=== PATIENT | female | born 1960 | race Caucasian/White ===

== ENCOUNTER 2024-05-11 10:15 | Outpatient (REF) | payer OTHER, SELFPAY ==
--- NOTE | ~2024-05-11 | XR_ITS ---
EXAMINATION: XR ANKLE, LEFT CLINICAL INFORMATION: Pain in the left ankle: COMPARISON: None available. TECHNIQUE: AP, lateral, and mortise views of the left ankle. FINDINGS: Nondisplaced/minimally displaced fracture distal fibula versus ossicle. Probable surrounding soft tissue swelling. The bones joints and soft tissues are otherwise unremarkable other than the moderate-sized plantar calcaneal spur. XR/XR ankle LT min 3V IMPRESSION: Nondisplaced/minimally displaced fracture of the distal fibula versus ossicle. Favor fracture. Correlate clinically
== END 2024-05-11 10:16 | disposition home or self-care (01) ==
LOC: HO.HOSX 10:15
PROVIDERS: Visit Provider Physician Assistant
DX: S82.892A Other fracture of left lower leg, initial encounter for closed fracture (principal)
CPT/HCPCS: 73610; 99202

== ENCOUNTER 2024-05-11 10:28 | Outpatient (AMB) | payer OTHER, SELFPAY ==
--- NOTE | 2024-05-11 10:35 | MHC.OFFVIS ---
Vital Signs 05/11/24 10:42 Height 5 ft 2.5 in Weight 205 lb BMI 36.9 Intake Visit Reasons: FC-Left ankle Fracture-twisted ankle 04/28/24 Intake Note: Sybil a 63 year old female who presents today for an evaluation of left ankle. 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 She presented to [facility] ER where xrays were taken, placed in a walking boot, crutches were given and referred to orthopedics. Currently she has a stinging sensation at the lateral aspect of ankle. States having improvement in swelling and pain since her injury. Allergies morphine Allergy (Unknown, Verified 05/11/24 10:43) hives, vomitting Medication List - Last Reconciled 05/11/24 by Leigh Ann Gallardo PA-C No Known Home Meds HPI HPI FC-Left ankle Fracture-twisted ankle 04/28/24: Details: Sybil is a 63-year-old female who presents today for an evaluation of left ankle fracture, twisted ankle on 04/28/24. 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 She was presented at [facility] ER, x-rays were taken, she was put in a walking boot, given crutches, and a referral was placed to see an orthopedic surgeon. She was grabbed by one of her colleague who helped her to get up. Currently, she has been experiencing a stinging sensation at the lateral aspect of her ankle. She reports significant improvement in her swelling and pain since her injury. She was worried about her walking boot because she finds it uncomfortable to wear. She claims that she had previously been injured. She was advised to become non-weightbearing after being placed in a cast. She has a history of breast cancer. She was diagnosed with osteopenia. [facility]LY [facility] Surgical History (Updated 05/11/24 @ 10:47 by RODOLFO Borrego) History of lithotripsy Hx of cholecystectomy Hx of lumpectomy Social History (Updated 05/11/24 @ 10:48 by RODOLFO Borrego) Patient Tobacco Use Status: Never used Tobacco Current occupational status: employed and retired Current occupation: [employer] Review of Systems Const All systems reviewed & are unremarkable except as noted in HPI and below Physical Exam Vital Signs: BMI result Body Mass Index 36.9 Const General: cooperative, healthy appearing, comfortable and no acute distress Orientation/consciousness: patient oriented x3 Neck Neck: Yes normal visual inspection and Yes no JVD Chest Chest palpation & inspection: normal inspection of the chest Resp Effort & Inspection: normal respiratory effort Auscultation: clear to auscultation bilaterally, crackles (no), rales (no), rhonchi (no) and wheezes (no) Cardio Jugular venous distension: no JVD Rate: regular rate Rhythm: regular rhythm Heart sounds: S1 normal heart sound present, S2 normal heart sound present, Murmur heart sound present (no) and Rub heart sound present (no) Neuro General: patient oriented x3 Extrem Other: Left ankle is normal to inspection. She has mild tenderness over the syndesmosis and medial malleolous. She has no tenderness over the base of the fifth metatarsal. NVI throughout. General: Yes normal to inspection, Yes no pedal edema and Yes no calf tenderness Psych Appearance: grossly normal Mental Status: mental status grossly normal Speech and movement: Normal speech and movement present Assessment & Plan Assessment & Plan (1) Closed left ankle fracture: Code(s): S82.892A - Other fracture of left lower leg, initial encounter for closed fracture Category: Medical Plan She will continue with the weightbearing as tolerated. She can come out of the boot for resting, icing, and hygiene. She can discontinue the use of the crutches and she will continue working from home without restrictions. I will see her back in 4 weeks with x-rays or sooner if needed. Orders: Orders XR ankle LT min 3V Today M25.572 - Pain in left ankle and joints of left foot Patient Instructions: Scribed for Leigh Ann Gallardo PA-C, by Giovani Falcon medical staffing coordinator, on 05/11/2024 at 10:45 AM ESTLeigh Ann Allison PA-C, have personally reviewed and agree with the information entered by the scribe. Coding Level of Care Code New Pt Level 3 (84742) Diagnoses Closed left ankle fracture S82.892A
[2024-05-11 10:42] VITALS: BMI 36.9
== END 2024-05-11 13:15 | disposition home or self-care (01) ==
PROVIDERS: PCP Internal Medicine; Visit Provider Physician Assistant
DX: S82.892A Other fracture of left lower leg, initial encounter for closed fracture (principal)
CPT/HCPCS: 99203

== ENCOUNTER 2024-06-13 09:11 | Outpatient (REF) | payer OTHER, SELFPAY ==
--- NOTE | ~2024-06-13 | XR_ITS ---
EXAMINATION: XR ANKLE, LEFT CLINICAL INFORMATION: Left ankle and foot pain. Follow-up fracture. COMPARISON: Left ankle radiographs dated 05/11/2024. TECHNIQUE: AP, lateral, and mortise views of the left ankle. FINDINGS: Chronic distal fibular fracture in unchanged anatomic alignment with cortication along the fracture line and no significant osseous bridging. The persistent fracture gap measures up to 0.1 cm. 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 No new fracture or dislocation. The ankle mortise is maintained. Small tibiotalar marginal osteophytes. No talar osteochondral lesion. Plantar and dorsal calcaneal spurs. XR/XR ankle LT min 3V IMPRESSION: 1. Chronic distal fibular fracture in unchanged anatomic alignment with cortication along the fracture line. No significant osseous bridging. 2. Mild tibiotalar osteoarthritis. Electronically signed by: Mehdi Landers MD 06/17/2024 10:10 AM EDT
== END 2024-06-13 09:12 | disposition home or self-care (01) ==
LOC: HO.HOSX 09:11
PROVIDERS: PCP Internal Medicine; Visit Provider Physician Assistant
DX: M25.572 Pain in left ankle and joints of left foot (principal); S82.892D Other fracture of left lower leg, subsequent encounter for closed fracture with routine healing
CPT/HCPCS: 73610; 99212

== ENCOUNTER 2024-06-13 09:37 | Outpatient (AMB) | payer OTHER, SELFPAY ==
--- NOTE | 2024-06-13 09:52 | A.OFFVIS_ITS ---
Vital Signs 06/13/24 09:58 Height 5 ft 2.5 in Weight 205 lb BMI 36.9 Intake Visit Reasons: OV-4wk f/u left ankle fx w xrays Intake Note: Sybil a 63 year old female who presents today for a follow up of left ankle fracture. Patient reports she is doing well, states swelling at night and occasional twinge with walking that is located at the lateral aspect of ankle. S he continues wearing boot as instructed. Allergies morphine Allergy (Unknown, Verified 06/13/24 09:58) hives, vomitting Medication List - Last Reconciled 06/13/24 by Leigh Ann Gallardo PA-C No Known Home Meds HPI HPI OV-4wk f/u left ankle fx w xrays: Details: 63-year-old female who returns to the office today for a follow-up of left ankle fracture. She reports she has swelling at night and occasional twinges at the lateral aspect of her ankle that comes with ambulation. Her symptoms are aggravated at night. She has been using her boot as instructed. FOR[facility]LY [facility] Surgical History (Updated 05/11/24 @ 10:47 by RODOLFO Borrego) History of lithotripsy Hx of cholecystectomy Hx of lumpectomy Social History (Updated 05/11/24 @ 10:48 by RODOLFO Borrego) Patient Tobacco Use Status: Never used Tobacco Current occupational status: employed and retired Current occupation: [employer] Review of Systems Const All systems reviewed & are unremarkable except as noted in HPI and below Physical Exam Vital Signs: BMI result Body Mass Index 36.9 Const General: cooperative, healthy appearing, comfortable and no acute distress Orientation/consciousness: patient oriented x3 Neck Neck: Yes normal visual inspection and Yes no JVD Chest Chest palpation & inspection: normal inspection of the chest Resp Effort & Inspection: normal respiratory effort Auscultation: clear to auscultation bilaterally, crackles (no), rales (no), rhonchi (no) and wheezes (no) Cardio Jugular venous distension: no JVD Rate: regular rate Rhythm: regular rhythm Heart sounds: S1 normal heart sound present, S2 normal heart sound present, Murmur heart sound present (no) and Rub heart sound present (no) Neuro General: patient oriented x3 Extrem Other: Left ankle is normal to inspection. She has mild tenderness over the syndesmosis and medial malleolous. She has no tenderness over the base of the fifth metatarsal. NVI throughout. General: Yes normal to inspection, Yes no pedal edema and Yes no calf tenderness Psych Appearance: grossly normal Mental Status: mental status grossly normal Speech and movement: Normal speech and movement present Results Reviewed Results Reviewed: Xrays were obtained in the office today and personally reviewed by me of the left ankle show stable lat maleolus avulsion Assessment & Plan Assessment & Plan (1) Closed left ankle fracture: Code(s): S82.892A - Other fracture of left lower leg, initial encounter for closed fracture Category: Medical Qualifiers: Encounter type: subsequent encounter Fracture healing: with routine healing Qualified Code(s): S82.892D - Other fracture of left lower leg, subsequent encounter for closed fracture with routine healing Plan She will transition from a boot to a lace up ankle brace. She will also begin a course of physical therapy to work on ROM, strengthening and proprioceptive training. She will return to work on 06/14 limiting her hours to 10 hours a week and in 6 weeks she can resume normal activities. I would like to see her back in 6 weeks, sooner if needed. Orders: Orders XR ankle LT min 3V Today M25.572 - Pain in left ankle and joints of left foot PT Evaluation and Treatment Today S82.892A - Other fracture of left lower leg, initial encounter for closed fracture Patient Instructions: Scribed for Leigh Ann Gallardo PA-C, by Wilder Armenta medical care manager, on 06/13/2024 at 9:45 AM EST.? I, Leigh Ann Gallardo PA-C, have personally reviewed and agree with the information entered by the scribe. Coding Level of Care Code Global (42103) Diagnoses Closed fracture of left ankle with routine healing, subsequent encounter S82.892D Encounter type: subsequent encounter Fracture healing: with routine healing
[2024-06-13 09:58] VITALS: BMI 36.9
== END 2024-06-13 10:36 | disposition home or self-care (01) ==
PROVIDERS: PCP Internal Medicine; Visit Provider Physician Assistant
DX: S82.892D Other fracture of left lower leg, subsequent encounter for closed fracture with routine healing (principal)
CPT/HCPCS: 99213

== ENCOUNTER 2024-07-25 10:09 | Outpatient (AMB) | payer OTHER, SELFPAY ==
--- NOTE | 2024-07-25 10:43 | A.OFFVIS_ITS ---
Vital Signs 07/25/24 10:48 Height 5 ft 5.2 in Weight 205 lb BMI 33.9 Intake Visit Reasons: OV-6wk f/u left ankle fx w xrays Intake Note: Sybil a 63 year old female who presents today for a follow up of left ankle fracture. Patient reports that she started PT on 07/11/24 and attends twice a week. She has recently transitioned into an ankle brace for short distances. States the plan is to become fully transitioned out of boot by the week of the . Allergies morphine Allergy (Unknown, Verified 07/25/24 10:47) hives, vomitting Medication List - Last Reconciled 07/25/24 by Leigh Ann Gallardo PA-C No Known Home Meds HPI HPI OV-6wk f/u left ankle fx w xrays: Details: 63-year-old female who returns to the office today for a follow-up of left ankle fracture. She states she has improvement in her swelling at night as well as ankle pain. She has been working on physical therapy as instructed. She wears an ankle brace for support. She has no other concerns today. [facility] Surgical History History of lithotripsy Hx of cholecystectomy Hx of lumpectomy Social History Patient Tobacco Use Status: Never used Tobacco Current occupational status: employed and retired Current occupation: [employer] Review of Systems Const All systems reviewed & are unremarkable except as noted in HPI and below Physical Exam Vital Signs: BMI result Body Mass Index 33.9 Const General: cooperative, healthy appearing, comfortable and no acute distress Orientation/consciousness: patient oriented x3 Neck Neck: Yes normal visual inspection and Yes no JVD Chest Chest palpation & inspection: normal inspection of the chest Resp Effort & Inspection: normal respiratory effort Auscultation: clear to auscultation bilaterally, crackles (no), rales (no), rhonchi (no) and wheezes (no) Cardio Jugular venous distension: no JVD Rate: regular rate Rhythm: regular rhythm Heart sounds: S1 normal heart sound present, S2 normal heart sound present, Murmur heart sound present (no) and Rub heart sound present (no) Neuro General: patient oriented x3 Extrem Other: Left ankle is normal to inspection. She has no tenderness over the syndesmosis and medial malleolous. She has no tenderness over the base of the fifth metatarsal. NVI throughout. General: Yes normal to inspection, Yes no pedal edema and Yes no calf tenderness Psych Appearance: grossly normal Mental Status: mental status grossly normal Speech and movement: Normal speech and movement present Results Reviewed Results Reviewed: Xrays were obtained in the office today and personally reviewed by me of the left ankle show stable lat maleolus avulsion Assessment & Plan Assessment & Plan (1) Closed left ankle fracture: Code(s): S82.892A - Other fracture of left lower leg, initial encounter for closed fracture Category: Medical Qualifiers: Encounter type: subsequent encounter Fracture healing: with routine healing Qualified Code(s): S82.892D - Other fracture of left lower leg, subsequent encounter for closed fracture with routine healing Plan She will continue working with physical therapy. She will continue wearing her lace up ankle brace and increase activities as tolerated. I recommend she wears the brace with impact activities and uneven surfaces. If symptoms persist or worsen, patient will contact the office, otherwise follow-up as needed. Orders: Orders XR ankle LT min 3V Today M25.572 - Pain in left ankle and joints of left foot Patient Instructions: Scribed for Leigh Ann Gallardo PA-C, by Wilder Armenta medical physics teacher, on 07/25/2024 at 11:00 AM EST.? I, Leigh Ann Gallardo PA-C, have personally reviewed and agree with the information entered by the scribe. Coding Level of Care Code Global (11195) Diagnoses Closed fracture of left ankle with routine healing, subsequent encounter S82.892D Encounter type: subsequent encounter Fracture healing: with routine healing
[2024-07-25 10:48] VITALS: BMI 33.9
== END 2024-07-25 11:22 | disposition home or self-care (01) ==
PROVIDERS: PCP Internal Medicine; Visit Provider Physician Assistant
DX: S82.892D Other fracture of left lower leg, subsequent encounter for closed fracture with routine healing (principal)
CPT/HCPCS: 99213

== ENCOUNTER 2024-07-25 11:53 | Outpatient (REF) | payer OTHER, SELFPAY | END 2024-07-25 11:54 | disposition home or self-care (01) | LOC: HO.HOSX 11:53 | PROVIDERS: Visit Provider Physician Assistant | DX: M25.572 Pain in left ankle and joints of left foot (principal); S82.892D Other fracture of left lower leg, subsequent encounter for closed fracture with routine healing | CPT/HCPCS: 73610; 99212 ==

== ENCOUNTER 2024-08-17 08:00 | Outpatient (RCR) | payer OTHER, SELFPAY ==
--- NOTE | 2024-07-11 13:25 | MHC.PT.EP ---
[facility] [place] Office [place] Office [place] Office [address] [phone] F: [phone] F: [phone] F: [phone] F: [phone] Physical Therapy Plan of Care Date of Evaluation: 07/11/24 Date of Surgery: Diagnosis: Fracture of L lower leg Assessment: Pt is a 63 y/o F with osteopenia who is referred to PT for eval and treat of fracture of L lower leg resulting in decreased tolerance or ability for walking, stairs and standing for extended periods of time secondary to decreased ankle ROM, mild swelling around lateral malleolus, gait abnormalities, evidence of non union avulsion fracture on x-ray and TTP around lateral malleolus. Pt is motivated and is deemed an appropriate candidate to receive skilled PT services to address their physical impairments in order to improve their function. Frequency and Duration: The patient will be seen 2x/week for 5 weeks. Short Term Goals: Initiate home exercise program. Pt will improve L ankle DF ROM to 10 deg; initial 10 deg PF. Pt will report at most 2/10 pain; initial 4/10. Skilled Nursing Goals: Pt will be I with home exercise program. Pt will report at most a little bit of difficulty walking a mile; initial quite a bit of difficulty. Pt will report at most a little bit of difficulty standing for 1 hour; initial quite a bit of difficulty. Pt will improve LEFI score by at least 9 points. Treatment Plan: Modalities to reduce pain, spasms and effusion. Manual therapy to restore motion and function. Therapeutic exercise to improve strength and flexibility. Neuromuscular re-education for posture and balance. Therapeutic activities to return to functional activities of daily living. Electronically signed by: Donny Rodriguez PT. Please sign and return to therapist. Thank you for your referral.
--- NOTE | 2024-08-17 09:02 | MHC.PT.DC ---
[facility] [place] Office [place] Office [place] Office [address] [facility] [phone] F: [phone] F: [phone] F: [phone] F: [phone] Physical Therapy Discharge Report Diagnosis: Fracture of L lower leg Date of Surgery: Date of Evaluation: 07/11/24 Date of Discharge: 08/17/24 Treatments to Date: 10 Cancellations to Date: No Shows to Date: Discharge Status: Achieved Goals Improved Function Independent with HEP Discharge Summary: Sybil has been an active and motivated participant in her program in and out of the clinic; we are in agreement with [place] as she has met her therapeutic goals, is negotiating a flight of stairs with reciprocal fashion; is managed of her pain and I with her home program. Electronically signed by: Donny Rodriguez PT. Please sign and return to therapist. Thank you for your referral.
== END 2024-08-17 08:58 | disposition home or self-care (01) ==
LOC: HO.PT 08:00
PROVIDERS: PCP Internal Medicine; Visit Provider Physician Assistant
DX: S82.892D Other fracture of left lower leg, subsequent encounter for closed fracture with routine healing (principal)
CPT/HCPCS: 97110; 97112; 97116; 97161; 97530